=== PATIENT | female | born 1975 | race Caucasian/White ===

== ENCOUNTER → 2017-06-16 | Emergency (ER) | payer OTHER ==
[~2017-06-16] VITALS: Ht 160 cm; Wt 79.4 kg
[~2017-06-16] MED LIST: GLUCOPHAGE XR500 MG; ZANTAC300 MG PO
== END | disposition home or self-care (01) ==
LOC: ER 19:12
DX: K29.70 Gastritis, unspecified, without bleeding (principal)